=== PATIENT | female | born 1975 | race Caucasian/White ===

== ENCOUNTER 2022-01-24 18:22 | Inpatient (IN) | payer OTHER ==
[~2022-01-24] VITALS: Ht 170.2 cm; Wt 159.0 kg
[2022-01-24 19:40] LABS: BASOPHIL 0.4 % (0-2); EOSINOPHIL 2.3 % (0-5); HCT 41.4 % (37.0-47.0); HGB 13.4 g/dl (12.5-16.0); LYMPHOCYTE 25.6 % (15-48); MCH 27.2 pg (25.0-31.0); MCHC 32.4 g/dL (32.0-36.0); MONOCYTE 6.6 % (0-12); MPV 11.5 fL (6.0-9.5); NEUTROPHIL 64.9 % (41-80); NRBC 0; PLT 292 K/uL (150-400); RBC 4.93 M/uL (4.20-5.40); RDW 14.5 % (11.5-14.0); WBC 9.5 K/uL (4.0-10.5)
[2022-01-24 20:01] LABS: INR 1.09 (0.9-1.2); PROTHROMBIN TIME 13.5 SECONDS (11.8-13.4); PTT 29.3 SECONDS (24.4-34.7)
[2022-01-24 20:12] LABS: ALBUMIN 3.6 g/dL (3.4-5.0); BILIRUBIN - TOTAL 0.4 mg/dL (0.2-1.0); BUN/CREAT RATIO (CALC) 14.4 RATIO; CREATININE 0.97 mg/dL (0.51-0.95); GLOBULIN (CALCULATION) 4.3 g/dL; MAGNESIUM 1.6 mg/dL (1.8-2.4); POTASSIUM 3.5 mmol/L (3.5-5.1); TOTAL PROTEIN 7.9 g/dL (6.4-8.2)
[2022-01-24 20:18] LABS: LACTIC ACID 1.7 mmol/L (0.4-1.9)
[2022-01-24 21:26] LABS: CORONAVIRUS 2019 SARS-COV-2 NEGATIVE (NEGATIVE); INFLUENZA A NAA NEGATIVE (NEGATIVE)
[2022-01-25] MEDS ORDERED: BUPROPION XL150 MG PO (00:35)
[2022-01-25] MEDS ORDERED: LISINOPRIL-HCT1 EAC2 PO (00:35)
[2022-01-25] MEDS ORDERED: MONTELUKAST SOD10 MG PO (00:36)
== END 2022-01-25 17:10 | disposition other institution (70) | DRG 281 ==
LOC: FER 18:22 → FICU 23:08
PROVIDERS: Emergency Medicine; ADMIT Internal Medicine
DX: I48.0 Paroxysmal atrial fibrillation (principal); I21.A1 Myocardial infarction type 2; Z68.43 Body mass index [BMI] 50.0-59.9, adult; E66.01 Morbid (severe) obesity due to excess calories; I11.9 Hypertensive heart disease without heart failure; Z20.822 Contact with and (suspected) exposure to COVID-19; F41.9 Anxiety disorder, unspecified; E78.5 Hyperlipidemia, unspecified; F32.A Depression, unspecified; R79.89 Other specified abnormal findings of blood chemistry; Z90.49 Acquired absence of other specified parts of digestive tract; Z98.84 Bariatric surgery status; Z79.899 Other long term (current) drug therapy
CPT/HCPCS: 36415; 71045; 71275; 80053; 83605; 83735; 83880; 84439; 84443; 84484; 85025; 85379; 85610; 85730; 87040; 93005; 94010; 96372; J1644; J1650; J2405; Q9967; U0002